=== PATIENT | male | born 1950 | race Caucasian/White ===

== ENCOUNTER 2023-04-14 12:31 | Outpatient (CLI) | payer MEDICARE, BC | END 2023-04-14 12:32 | disposition home or self-care (01) | LOC: CSHMRI 12:31 | PROVIDERS: ATTEND Neurological Surgery | DX: M47.26 Other spondylosis with radiculopathy, lumbar region (principal); Z98.890 Other specified postprocedural states | CPT/HCPCS: 72158; 82565 ==

== ENCOUNTER 2023-04-29 08:53 | Outpatient (CLI) | payer MEDICARE, BC ==
[2023-04-29] MEDS ORDERED: Iopamidol 370 76% 100 ML VIAL ONE (14:06)
== END 2023-04-29 08:54 | disposition home or self-care (01) ==
LOC: CSHCT 08:53
PROVIDERS: ATTEND Internal Medicine Cardiovascular Disease
DX: I71.20 Thoracic aortic aneurysm, without rupture, unspecified (principal); I71.21 Aneurysm of the ascending aorta, without rupture
CPT/HCPCS: 71275; 82565; Q9967